=== PATIENT | male | born 1985 ===

== ENCOUNTER 2017-03-17 17:00 | Emergency (ER) | payer SELFPAY ==
[2017-03-17 17:09] VITALS: BP 123/78
[2017-03-17] MEDS ORDERED: Ketorolac INJ* 60 MG/2 ML VIAL IM ONE (18:07)
[2017-03-17] MEDS ORDERED: Ciprofloxacin TAB* 500 MG PO ONE (18:07)
[2017-03-17] MEDS ORDERED: Phenazopyridine TAB* 100 MG PO ONE (18:07)
--- NOTE | 2017-03-17 20:50 | UC ---
Danii Rogers Thomas, scribed for Kd Henry MD on 03/17/17 at 1744 . Complaint Male HPI - HPI Summary HPI Summary: The patient is a 31 year old male presenting to Urgent Care with difficulty urinating, burning with urination, and urinary frequency that began three days ago. The patient had similar symptoms about a year ago with urinary retention secondary to an enlarged prostate. The patient has had fevers on and off. He denies abdominal pain or tenderness. He is able to urinate but it is very painful. He is sexually active with different partners and uses protection. - History of Current Complaint Chief Complaint: UCGU Stated Complaint: POSS UTI Time Seen by Provider: 03/17/17 17:32 Hx Obtained From: Patient Onset/Duration: Lasting Days - 3, Still Present Timing: Constant Severity Currently: Severe Pain Intensity: 9 Pain Scale Used: 0-10 Numeric Character: Burning Aggravating Factor(s): Voiding Alleviating Factor(s): Nothing Associated Signs And Symptoms: Positive: Fever - on and off, Dysuria - Allergies/Home Medications Allergies/Adverse Reactions: Allergies Allergy/AdvReac Type Severity Reaction Status Date / Time No Known Allergies Allergy Verified 03/17/17 17:09 PMH/Surg Hx/FS Hx/Imm Hx Previously Healthy: No - Urinary retention; NEGATIVE: blindness, ID - Surgical History Surgical History: None - Family History Known Family History: Positive: Other - Patient denies relevant FHx - Social History Alcohol Use: Occasionally Substance Use Type: None Smoking Status (MU): Never Smoked Tobacco Review of Systems Constitutional: Fever - on and off Genitourinary: Dysuria, Frequency, Other - Difficulty urinating Is Patient Immunocompromised?: No All Other Systems Reviewed And Are Negative: Yes Physical Exam Triage Information Reviewed: Yes Vital Signs: Initial Vital Signs Temp 98.9 F 03/17/17 17:04 Pulse 81 03/17/17 17:04 Resp 16 03/17/17 17:04 BP 123/78 03/17/17 17:04 Pulse Ox 99 03/17/17 17:04 Vital Signs Reviewed: Yes - Additional Comments VITAL SIGNS: Reviewed. GENERAL: Patient is a well-developed and nourished male who is lying comfortable in the stretcher. Patient is not in any acute respiratory distress. HEAD AND FACE: Normocephalic EYES: PERRLA, EOMI x 2. EARS: Hearing grossly intact. MOUTH: Oropharynx within normal limits. NECK: Supple, trachea is midline, no adenopathy, no JVD, no carotid bruit. CHEST: Symmetric, no tenderness at palpation LUNGS: Clear to auscultation bilaterally. No wheezing or crackles. CVS: Regular rate and rhythm, S1 and S2 present, no murmurs or gallops appreciated. ABDOMEN: Soft, non-tender. Bowel sounds are normal. No abdominal abnormal pulsations. RECTAL: He has an enlarged prostate that is tender. EXTREMITIES: Full ROM in all major joints, no edema, no cyanosis or clubbing. NEURO: Alert and oriented x 3. No acute neurological deficits. Speech is normal and follows commands. SKIN: Dry and warm Complaint Male Course/Dx - Course Course Of Treatment: The patient is a 31 year old male presenting to Urgent Care with difficulty urinating, burning with urination, and urinary frequency that began three days ago. The patient had similar symptoms about a year ago with urinary retention secondary to an enlarged prostate. The patient has had fevers on and off. He denies abdominal pain or tenderness. He is able to urinate but it is very painful. He is sexually active with different partners and uses protection. On rectal exam, the patient has an enlarged prostate that is tender. Urinalysis is negative for UTI. At urgent care the patient was given Ciprofloxacin, Toradol, and Pyridium. GC cultures were sent. He will f/u with PMD for results. The patient is diagnosed with prostatitis. The patient will be discharged home and instructed to follow up with primary care. The patient is prescribed ciprofloxacin and Pyridium. He denies treatment for STD's until confirmation with test results. - Differential Dx/Diagnosis Differential Diagnosis/HQI/PQRI: Prostatitis, Urinary Tract Infection, Other - STD's Provider Diagnoses: Prostatitis Discharge - Discharge Plan Condition: Stable Disposition: HOME Prescriptions: Ciprofloxacin TAB* [Cipro 500 MG TAB*] 500 mg PO BID #14 tab Phenazopyridine TAB* [Pyridium 100 mg TAB*] 100 mg PO TID #9 tab Patient Education Materials: Prostatitis (ED) Referrals: [facility] [place] [facility] [Outside] - 3 Days Additional Instructions: Follow up with your primary care physician in three days. Return to urgent care for any new or worsening symptoms. The documentation as recorded by the Danii campos Thomas accurately reflects the service I personally performed and the decisions made by me, Kd Henry MD.
== END 2017-03-17 18:28 | disposition home or self-care (01) ==
LOC: UCEAST 17:00
DX: N41.9 Inflammatory disease of prostate, unspecified (principal)
CPT/HCPCS: 81003; 87491; 87591; 96372; 99202; A9270-GY; G0463; J1885